=== PATIENT | male | born 1985 ===

== ENCOUNTER 2021-10-03 17:58 | Emergency (ER) | payer OTHER ==
[2021-10-03] MEDS ORDERED: SODIUM CHLORIDE 0.9% 1000 ML 1,000 ML IV ONE (19:54)
[2021-10-03] MEDS ORDERED: ASPIRIN 81 MG TAB CHEW PO ONE (19:54)
--- NOTE | 2021-10-03 20:20 | Emergency Department Report ---
ED Palpitations HPI - General Chief Complaint: Arrhythmia/Palpitations Stated Complaint: HEART PALPITATIONS Source: patient Mode of arrival: Ambulatory Limitations: No Limitations - History of Present Illness Initial Comments: Patient is a 36-year-old male here with complaints of palpitations. Patient reports that earlier today while at work he noticed his heart was racing and he had some chest pain. He states he felt like sharp chest pain. He states he was not doing anything stressful or strenuous when it started. He did not check his heart rate when this occurred. He denies history of any family history of cardiac disease but he notes personal history of hypertension and diabetes. He states he denies feeling shortness of breath or nausea. He states this happened once before he was noted to be dehydrated. - Related Data Allergies Allergy/AdvReac Type Severity Reaction Status Date / Time No Known Allergies Allergy Verified 10/03/21 20:49 ED Review of Systems ROS: Stated complaint: HEART PALPITATIONS Other details as noted in HPI Constitutional: denies: chills, fever Eyes: denies: eye pain, eye discharge, vision change ENT: denies: ear pain, throat pain Respiratory: denies: cough, shortness of breath, wheezing Cardiovascular: chest pain, palpitations Endocrine: no symptoms reported Gastrointestinal: denies: abdominal pain, nausea, diarrhea Genitourinary: denies: urgency, dysuria Musculoskeletal: denies: back pain, joint swelling, arthralgia Skin: denies: rash, lesions Neurological: as per HPI Psychiatric: denies: anxiety, depression Hematological/Lymphatic: denies: easy bleeding, easy bruising ED Past Medical Hx - Past Medical History Hx Hypertension: Yes ED Physical Exam - General Limitations: No Limitations General appearance: alert, in no apparent distress - Head Head exam: Present: atraumatic, normocephalic - Eye Eye exam: Present: normal appearance - ENT ENT exam: Present: mucous membranes moist - Neck Neck exam: Present: normal inspection - Respiratory Respiratory exam: Present: normal lung sounds bilaterally. Absent: respiratory distress - Cardiovascular Cardiovascular Exam: Present: regular rate, normal rhythm. Absent: systolic murmur, diastolic murmur, rubs, gallop - GI/Abdominal GI/Abdominal exam: Present: soft, normal bowel sounds - Rectal Rectal exam: Present: deferred - Extremities Exam Extremities exam: Present: normal inspection - Back Exam Back exam: Present: normal inspection - Neurological Exam Neurological exam: Present: alert, oriented X3 - Psychiatric Psychiatric exam: Present: normal affect - Skin Skin exam: Present: warm, dry, intact, normal color. Absent: rash ED Course Vital Signs 10/03/21 18:06 Temperature 98.3 F Pulse Rate 112 H Respiratory 15 Rate Blood Pressure 167/105 O2 Sat by Pulse 100 Oximetry - Reevaluation(s) Reevaluation #1: 10/03/21 23:24 P troponin is negative. EKG does not show any acute ischemia. Shows sinus arrhythmia and LVH. Patient to follow-up with cardiology and primary care. ED Medical Decision Making - Lab Data Result diagrams: 10/03/21 20:42 10/03/21 20:42 - EKG Data -: EKG Interpreted by Me EKG shows normal: sinus rhythm Rate: normal No standard instances Rhythm: arrhythmia - EKG Data When compared to previous EKG there are: previous EKG unavailable - Radiology Data Radiology results: report reviewed, image reviewed - Medical Decision Making Patient is a 36-year-old male here with complaints of chest pain and palpitations that occurred while at work. Patient states he feels improved at this time and does not have risk factors for family history of cardiac disease but does have personal risk factors of hypertension diabetes. Plan for EKG, basic labs including electrolytes will give IV fluids and reassess. Critical care attestation.: If time is entered above; I have spent that time in minutes in the direct care of this critically ill patient, excluding procedure time. ED Disposition Clinical Impression: Chest pain, Palpitations Disposition: 01 HOME / SELF CARE / HOMELESS Is pt being admited?: No Does the pt Need Aspirin: Yes Condition: Stable Instructions: Nonspecific Chest Pain, Adult Referrals: PRIMARY MD RENAE [Primary Care Provider] - 3-5 Days STEFFANIE HUBBARD MD [Referring] - 3-5 Days JUDITH ALCAZAR MD [Staff Physician] - 3-5 Days Forms: Work/School Release Form(ED)
--- NOTE | 2021-10-03 20:24 | XRay Report ---
XR chest routine 2V INDICATION / CLINICAL INFORMATION: Dysrhythmia COMPARISON: None FINDINGS: SUPPORT DEVICES: None. HEART / MEDIASTINUM: No significant abnormality. LUNGS / PLEURA: Lungs are clear. Costophrenic sulci are sharp. No pneumothorax. ADDITIONAL FINDINGS: No significant additional findings. IMPRESSION: 1. No acute findings. Signer Name: David Adams MD Signed: 10/03/2021 8:19 PM Workstation Name: [id number]
[2021-10-03 20:58] LABS: Basophils # (Auto) 0.2 K/mm3 (0.0-0.1); Basophils % (Auto) 2.3 % (0.0-1.8); Eosinophils # (Auto) 0.2 K/mm3 (0.0-0.4); Eosinophils % (Auto) 1.6 % (0.0-4.3); Hematocrit 44.9 % (35.5-45.6); Lymphocytes # (Auto) 1.1 K/mm3 (1.2-5.4); Lymphocytes % (Auto) 11.1 % (13.4-35.0); Mean Corpuscular HGB Conc 33 % (32-34); Mean Corpuscular Volume 88 fl (84-94); Monocytes # (Auto) 0.4 K/mm3 (0.0-0.8); Monocytes % (Auto) 4.4 % (0.0-7.3); Platelet Count 261 K/mm3 (140-440); Red Cell Distribution Width 13.2 % (13.2-15.2)
[2021-10-03 21:19] LABS: Alanine Aminotransferase 31 units/L (7-56); Albumin 4.7 g/dL (3.9-5); BUN/Creatinine Ratio 15; Blood Urea Nitrogen 12 mg/dL (9-20); Calcium 9.6 mg/dL (8.4-10.2); Hemolysis Index 136
[2021-10-04 03:36] VITALS: BP 154/88
--- NOTE | 2021-10-04 17:33 | Electrocardiograph Report ---
[facility] Test Date: 2021-10-03 Test Time: 22:45:35 Pat Name: CONNOR MAHAN Department: Room: Gender: M Data Security Analyst: JEANMARIE : 1985 Requested By: DULCE MONTESINOS Order Number: [id number] Reading MD: Buck Cabrera Measurements Intervals [place] Rate: 61 P: 46 NM: 180 QRS: 21 QRSD: 92 T: -2 QT: 399 QTc: 403 Interpretive Statements Sinus arrhythmia Left ventricular hypertrophy No previous ECG available for comparison Electronically Signed On 10-04-2021 17:33:17 EST by Buck Cabrera
== END 2021-10-04 00:29 | disposition home or self-care (01) ==
LOC: ED 17:58
DX: R07.89 Other chest pain (principal); I10 Essential (primary) hypertension; Z79.899 Other long term (current) drug therapy
CPT/HCPCS: 36415; 71046; 80053; 83735; 84443; 84484; 85025; 93005; 96360; 99284; J7030; Q0162

== ENCOUNTER 2022-03-19 01:58 | Emergency (ER) | payer SELFPAY ==
--- NOTE | 2022-03-19 09:38 | Emergency Department Report ---
ED General Adult HPI - General Chief complaint: High BP Stated complaint: HIGH BP/SOB Time Seen by Provider: 03/19/22 09:32 Source: patient Mode of arrival: Ambulatory Limitations: No Limitations - History of Present Illness Initial comments: This is a 36-year-old -[place] male who presents to the emergency room with elevated blood pressure and shortness of breath. Patient states symptoms started around 2330 last night. Past medical history of hypertension. Patient is currently taking lisinopril hydrochlorothiazide 20/25 milligram, and ni fedipine ER 90 mg p.o. daily. Patient states he did take medication yesterday. Patient states earlier that day he did feel some pain in his left arm for 5 to 10 minutes and then resolved. He did not think anything else of it until symptoms started later on that night. Patient also states similar symptoms 2 months ago and came to the emergency room with no acute findings. Patient states he followed up with his PCP 2 weeks ago with recent labs that were all normal. Denies symptoms currently. Denies chest pain, shortness of breath, palpitations, dizziness, cough, fever, chills, fatigue or weakness. Severity scale (0 -10): 0 - Related Data Home Medications Medication Instructions Recorded Confirmed Last Taken Lisinopril/Hydrochlorothiazide 1 tab PO QDAY 03/19/22 03/19/22 1 Day Ago [Zestoretic 20-12.5 mg] ~03/18/22 NIFEdipine [Nifedipine ER] 90 mg PO DAILY 03/19/22 03/19/22 1 Day Ago ~03/18/22 Allergies Allergy/AdvReac Type Severity Reaction Status Date / Time No Known Allergies Allergy Verified 10/03/21 20:49 ED Review of Systems ROS: Stated complaint: HIGH BP/SOB Other details as noted in HPI Constitutional: denies: chills, fever Respiratory: shortness of breath. denies: cough, wheezing Cardiovascular: denies: chest pain, palpitations Gastrointestinal: denies: abdominal pain, nausea, diarrhea Genitourinary: denies: urgency, dysuria Neurological: denies: headache, weakness, paresthesias Psychiatric: denies: anxiety, depression ED Past Medical Hx - Past Medical History Hx Hypertension: Yes - Medications Home Medications: Home Medications Medication Instructions Recorded Confirmed Last Taken Type Lisinopril/Hydrochlorothiazide 1 tab PO QDAY 03/19/22 03/19/22 1 Day Ago History [Zestoretic 20-12.5 mg] ~03/18/22 NIFEdipine [Nifedipine ER] 90 mg PO DAILY 03/19/22 03/19/22 1 Day Ago History ~03/18/22 ED Physical Exam - General Limitations: No Limitations General appearance: alert, in no apparent distress, obese - Head Head exam: Present: atraumatic, normocephalic - ENT ENT exam: Present: mucous membranes moist - Respiratory Respiratory exam: Present: normal lung sounds bilaterally. Absent: respiratory distress - Cardiovascular Cardiovascular Exam: Present: regular rate, normal rhythm. Absent: systolic murmur, diastolic murmur, rubs, gallop - Neurological Exam Neurological exam: Present: alert, oriented X3, normal gait - Psychiatric Psychiatric exam: Present: normal affect, normal mood - Skin Skin exam: Present: warm, dry, intact, normal color. Absent: rash ED Course Vital Signs 03/19/22 02:32 Temperature 98.2 F Pulse Rate 89 Respiratory 18 Rate Blood Pressure 160/94 O2 Sat by Pulse 98 Oximetry Vital Signs 03/19/22 03/19/22 02:32 09:38 Temperature 98.2 F 98.2 F Pulse Rate 89 58 L Respiratory 18 Rate Blood Pressure 160/94 Blood Pressure 135/79 [Left] O2 Sat by Pulse 98 Oximetry ED Medical Decision Making - Medical Decision Making This is a 36 y.o. male that presents with elevated blood pressure and shortness of breath yesterday. History of HTN. Patient off lisinopril-HCTZ 20-25 mg po daily and nifedipine ER 90 mg p.o. daily. Patient is stable and was examined by me. Normal physical exam. Patient asymptomatic. Blood pressure 135/79 and reports feeling better. Labs and imaging deferred at this time. Instructed to continue taking current medication. Lifestyle modification education. Continue BP log. Follow-up with PCP. Discussed plan with patient and agreed to plan. No further questions noted by the patient. Discharged home in stable condition. Follow up with PCP in 1 week. Critical care attestation.: If time is entered above; I have spent that time in minutes in the direct care of this critically ill patient, excluding procedure time. ED Disposition Clinical Impression: Elevated blood pressure reading Hypertension Qualifiers: Hypertension type: primary hypertension Qualified Code(s): I10 - Essential (primary) hypertension Disposition: HOME / SELF CARE / HOMELESS Is pt being admited?: No Condition: Stable Instructions: Hypertension (ED), Hypertension, Adult, [id number], Managing Your Hypertension Referrals: JANELL AMBROSE MD [Staff Physician] - 3-5 Days [facility] [Provider Group] - 3-5 Days Forms: Work/School Release Form(ED) Time of Disposition: 09:45
[2022-03-19 09:39] VITALS: BP 135/79
== END 2022-03-19 10:35 | disposition home or self-care (01) ==
LOC: ED 01:58
DX: I10 Essential (primary) hypertension (principal); Z79.899 Other long term (current) drug therapy
CPT/HCPCS: 99282